=== PATIENT | male | born 1965 | race Caucasian/White ===

== ENCOUNTER 2017-07-11 10:32 | Emergency (ER) | payer OTHER ==
[~2017-07-11] VITALS: Ht 167.6 cm; Wt 96.7 kg
[~2017-07-11 10:32] MED LIST: ATOR10; LISI-360 PO; ONDA1TAB16 PO; PERC5TAB12 PO; TAMS0.4C67 PO
[2017-07-11 10:40] VITALS: BP 159/92; PULSE 120; RESP 18; TEMP 97.8; O2SAT 96
[2017-07-11] MEDS ORDERED: LIPI10TA PO (10:59)
[2017-07-11] MEDS ORDERED: PERC10TA27 PO (10:59)
[2017-07-11] MEDS ORDERED: VOLT100T (10:59)
[2017-07-11] MEDS ORDERED: LISI10TA PO (10:59)
[2017-07-11] MEDS ORDERED: GABA300C5 PO (10:59)
[2017-07-11] MEDS ORDERED: AMBI5TAB PO (10:59)
--- NOTE | 2017-07-11 11:14 | PD ---
HPI Chief Complaint: Hypertension Time Seen by Provider: 10:55 Travel History International Travel<30 days: No Contact w/Intl Traveler<30days: No Traveled to known affect area: No History of Present Illness HPI This 51-year-old male is complaining of high blood pressure. He has been checking his blood pressures at home and his systolic has been around 140 with diastolics 100-110. He's had occasional blurred vision. He's been having a lot of back pain. He believes he can have surgery on his back in the next week or so to have a fusion. She is previously had discectomy and has had an epidural steroid injections. 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 His current blood pressure medicine is lisinopril 20 mg twice a day he does not recall being on any other medicine. He is having back pain now the pain radiates down his left leg PFSH Past Medical History Arthritis: Yes Asthma: Yes Autoimmune Disease: No Blood Disorders: No Anxiety: No Depression: No Heart Rhythm Problems: No Cancer: No Cardiovascular Problems: Yes High Cholesterol: Yes Chemotherapy: No Chest Pain: Yes Congestive Heart Failure: No COPD: No Cerebrovascular Accident: No Diabetes: No Diminished Hearing: No Gastrointestinal Disorders: No GERD: No Glaucoma: No Headaches: No Hepatitis: No Hiatal Hernia: No Hypertension: Yes Kidney Stones: Yes Musculoskeletal: Yes (FX R FOOT, CHRONIC BACK PAIN) Neurologic: No Psychiatric: No Reproductive: No Respiratory: No Immunizations Current: Yes Myocardial Infarction: No Pancreatitis: No Radiation Therapy: No Renal Failure: No Seizures: No Sickle Cell Disease: No Sleep Apnea: Yes Thyroid Disease: No Ulcer: No Tetanus Vaccination: > 5 Years Influenza Vaccination: No Past Surgical History Abdominal Surgery: No AICD: No Cardiac Surgery: No Ear Surgery: No Endocrine Surgery: No Eye Surgery: No Genitourinary Surgery: No Gynecologic Surgery: No Neurologic Surgery: Yes (DISC SURG) Oral Surgery: No Pacemaker: No Thoracic Surgery: No Other Surgery: Yes Social History Alcohol Use: No Tobacco Use: No Substance Use: No Allergies-Medications (Allergen,Severity, Reaction): Coded Allergies: bee venom protein (honey bee) (Unverified Allergy, Severe, Anaphylaxis, ) Reported Meds & Prescriptions Reported Meds & Active Scripts Active Reported Gabapentin 300 Mg Cap 300 Mg PO TID Ambien (Zolpidem Tartrate) 5 Mg Tab Unknown Dose PO HS PRN Lipitor (Atorvastatin Calcium) 10 Mg Tab Unknown Dose PO HS Voltaren-Xr (Diclofenac Sodium) 100 Mg Tab.er.24h Percocet (Oxycodone-Acetaminophen) 10-325 mg Tab 1 Tab PO Q6H PRN Lisinopril-Hctz 10-12.5 Mg Tab Unknown Dose PO DAILY Review of Systems General / Constitutional: No: Fever, Chills Eyes: Positive: Blurred Vision HENT: No: Headaches Cardiovascular: No: Chest Pain or Discomfort, Palpitations Respiratory: No: Cough, Shortness of Breath Gastrointestinal: No: Nausea, Vomiting Genitourinary: No: Urgency, Frequency Musculoskeletal: No: Myalgias Neurologic: No: Weakness, Dizziness Endocrine: No: Heat Intolerance, Cold Intolerance Hematologic/Lymphatic: No: Easy Bruising Physical Exam Narrative GENERAL: Well-developed male SKIN: Focused skin assessment warm/dry. HEAD: Atraumatic. Normocephalic. EYES: Pupils equal and round. No scleral icterus. No injection or drainage. ENT: No nasal bleeding or discharge. Mucous membranes pink and moist. NECK: Trachea midline. No JVD. CARDIOVASCULAR: Regular rate and rhythm. No murmur appreciated. RESPIRATORY: No accessory muscle use. Clear to auscultation. Breath sounds equal bilaterally. GASTROINTESTINAL: Abdomen soft, non-tender, nondistended. Hepatic and splenic margins not palpable. MUSCULOSKELETAL: No obvious deformities. No clubbing. No cyanosis. No edema. NEUROLOGICAL: Awake and alert. No obvious cranial nerve deficits. Motor grossly within normal limits. Normal speech. PSYCHIATRIC: Appropriate mood and affect; insight and judgment normal. Data Data Last Documented VS Vital Signs Date Time Temp Pulse Resp B/P (MAP) Pulse Ox O2 Delivery O2 Flow Rate FiO2 07/11/17 13:02 83 18 135/96 (109) 97 Room Air 07/11/17 10:40 97.8 Orders Orders Complete Blood Count With Diff (07/11/17 11:10) Basic Metabolic Panel (Bmp) (07/11/17 11:10) Clonidine (Catapres) (07/11/17 11:15) Hydromorphone Pf Inj (Dilaudid Pf Inj) (07/11/17 11:15) Ondansetron Inj (Zofran Inj) (07/11/17 11:15) Hydromorphone Pf Inj (Dilaudid Pf Inj) (07/11/17 12:30) Labs Laboratory Tests Test 07/11/17 12:10 White Blood Count 16.3 TH/MM3 Red Blood Count 6.28 MIL/MM3 Hemoglobin 17.1 GM/DL Hematocrit 51.8 % Mean Corpuscular Volume 82.5 FL Mean Corpuscular Hemoglobin 27.3 PG Mean Corpuscular Hemoglobin Concent 33.1 % Red Cell Distribution Width 13.0 % Platelet Count 386 TH/MM3 Mean Platelet Volume 8.6 FL Neutrophils (%) (Auto) 75.1 % Lymphocytes (%) (Auto) 18.0 % Monocytes (%) (Auto) 3.6 % Eosinophils (%) (Auto) 0.4 % Basophils (%) (Auto) 2.9 % Neutrophils # (Auto) 12.2 TH/MM3 Lymphocytes # (Auto) 2.9 TH/MM3 Monocytes # (Auto) 0.6 TH/MM3 Eosinophils # (Auto) 0.1 TH/MM3 Basophils # (Auto) 0.5 TH/MM3 CBC Comment DIFF FINAL Differential Comment Blood Urea Nitrogen 32 MG/DL Creatinine 1.20 MG/DL Random Glucose 212 MG/DL Calcium Level 9.8 MG/DL Sodium Level 132 MEQ/L Potassium Level 4.5 MEQ/L Chloride Level 95 MEQ/L Carbon Dioxide Level 28.1 MEQ/L Anion Gap 9 MEQ/L Estimat Glomerular Filtration Rate 64 ML/MIN [facility] Medical Decision Making Medical Screen Exam Complete: Yes Emergency Medical Condition: Yes Medical Record Reviewed: Yes Differential Diagnosis Differential includes hypertension Narrative Course Management of this gentleman said hypertension is complicated by his ongoing pain and intermittent steroid administration. Blood sugar is slightly elevated probably from recent steroids. In the prescribed Norvasc for him to use and clonidine to use on an as-needed basis Diagnosis Primary Impression: Hypertension Scripts Clonidine (Clonidine) 0.1 Mg Tab 0.1 MG PO DIRECTED for Blood Pressure Management, #15 TAB 0 Refills Prov: Oscar Beal MD 07/11/17 Amlodipine (Norvasc) 5 Mg Tab 5 MG PO DAILY for Blood Pressure Management for 30 Days, #30 TAB 0 Refills Prov: Oscar Beal MD 07/11/17 Disposition: 01 DISCHARGE HOME Condition: Stable Oscar Beal MD Jul 11, 2017 11:14
[2017-07-11] MEDS ORDERED: cloNIDine HCL 0.1 MG TAB PO ONE (11:15)
[2017-07-11] MEDS ORDERED: HYDROmorphone HCL PF 1 MG/ML VIAL IV PUSH ONE (11:15)
[2017-07-11] MEDS ORDERED: ONDANSETRON HCL 4 MG/2 ML VIAL IV PUSH ONE (11:15)
[2017-07-11 12:23] VITALS: BP 162/108
[2017-07-11] MEDS ORDERED: HYDROmorphone HCL PF 2 MG/ML VIAL IV PUSH ONE (12:30)
[2017-07-11 12:33] LABS: AUTOMATED NEUTROPHIL # 12.2 TH/MM3 (1.8-7.7); BASOPHIL # 0.5 TH/MM3 (0-0.2); BASOPHIL % 2.9 % (0.0-2.0); EOSINOPHIL # 0.1 TH/MM3 (0-0.4); EOSINOPHIL % 0.4 % (0.0-4.0); HEMATOCRIT 51.8 % (39.0-51.0); HEMOGLOBIN 17.1 GM/DL (13.0-17.0); LYMPHOCYTE # 2.9 TH/MM3 (1.0-4.8); MEAN CELL VOLUME 82.5 FL (80.0-100.0); MEAN CORPUSCULAR HEMOGLOBIN 27.3 PG (27.0-34.0); MEAN CORPUSCULAR HGB CONC 33.1 % (32.0-36.0); MEAN PLATELET VOLUME 8.6 FL (7.0-11.0); MONO % 3.6 % (0.0-8.0); MONOCYTE # 0.6 TH/MM3 (0-0.9); NEUT % 75.1 % (16.0-70.0); PLATELET COUNT 386 TH/MM3 (150-450); RED BLOOD COUNT 6.28 MIL/MM3 (4.50-5.90); WHITE BLOOD COUNT 16.3 TH/MM3 (4.0-11.0)
[2017-07-11 12:43] LABS: CALCIUM 9.8 MG/DL (8.5-10.1)
[2017-07-11 12:44] LABS: BICARBONATE 28.1 MEQ/L (21.0-32.0)
[2017-07-11 12:47] LABS: CREATININE 1.2 MG/DL (0.60-1.30)
[2017-07-11 13:02] VITALS: BP 135/96; PULSE 83; RESP 18; O2SAT 97
[2017-07-11] MEDS ORDERED: AMLO5 PO (13:14)
[2017-07-11] MEDS ORDERED: CLON0.1T PO (13:14)
== END 2017-07-11 13:29 | disposition home or self-care (01) ==
LOC: PHED 10:32
DX: I10 Essential (primary) hypertension (principal); H53.8 Other visual disturbances; M54.9 Dorsalgia, unspecified; M79.605 Pain in left leg; G89.29 Other chronic pain; H57.04 Mydriasis; E78.00 Pure hypercholesterolemia, unspecified; G47.30 Sleep apnea, unspecified; M19.90 Unspecified osteoarthritis, unspecified site; Z87.09 Personal history of other diseases of the respiratory system; Z87.442 Personal history of urinary calculi; Z87.39 Personal history of other diseases of the musculoskeletal system and connective tissue
CPT/HCPCS: 80048; 85025; 96374; 96375; 99283; J1170; J2405